=== PATIENT | female | born 1950 | race Caucasian/White ===

== ENCOUNTER → 2016-05-03 | Outpatient (CLI) | payer OTHER | LOC: CIMAGING 10:45 | PROVIDERS: ATTEND Family Medicine | DX: R10.32 Left lower quadrant pain (principal) | CPT/HCPCS: 76856-PO; G0202 ==

== ENCOUNTER → 2016-05-13 | Outpatient (CLI) | payer OTHER ==
[~2016-05-13] MED LIST: IOPAMIDOL (ISOVUE-300) 100 ML BTL IV ONE
== END ==
LOC: CIMAGING 14:31
PROVIDERS: ATTEND Family Medicine
DX: R10.32 Left lower quadrant pain (principal); M51.27 Other intervertebral disc displacement, lumbosacral region; I70.0 Atherosclerosis of aorta
CPT/HCPCS: 74177-PO; Q9967

== ENCOUNTER → 2017-05-05 | Outpatient (CLI) | payer OTHER | LOC: CIMAGING 08:18 | PROVIDERS: ATTEND Family Medicine | DX: Z12.31 Encounter for screening mammogram for malignant neoplasm of breast (principal) ==

== ENCOUNTER → 2018-05-05 | Outpatient (CLI) | payer OTHER | LOC: BRMIMAGING 08:12 | PROVIDERS: ATTEND Physician Assistant Medical | DX: Z12.31 Encounter for screening mammogram for malignant neoplasm of breast (principal); M85.80 Other specified disorders of bone density and structure, unspecified site; Z78.0 Asymptomatic menopausal state; E28.39 Other primary ovarian failure ==